=== PATIENT | female | born 2000 | race Caucasian/White ===

== ENCOUNTER → 2020-07-09 10:32 | Outpatient (CLI) | payer OTHER, SELFPAY ==
[2020-07-09 12:10] LABS: Hematocrit 33.1 % (36-46); Hemoglobin 11.3 g/dL (12.0-16.0)
[2020-07-09 12:27] LABS: GTT (PREG) 1 Hour PP 50gm Dose 92 mg/dL (76-139)
== END ==
PROVIDERS: PCP Obstetrics & Gynecology; Referring Provider Obstetrics & Gynecology; Visit Provider Obstetrics & Gynecology
DX: Z34.82 Encounter for supervision of other normal pregnancy, second trimester (principal); Z3A.28 28 weeks gestation of pregnancy
CPT/HCPCS: 36415; 82950; 85014; 85018

== ENCOUNTER → 2020-07-23 13:36 | Outpatient (CLI) | payer OTHER, SELFPAY ==
[2020-07-24 08:03] LABS: Strep Grp B PCR NEG for Grp B Strep
== END ==
PROVIDERS: PCP Obstetrics & Gynecology; Visit Provider Obstetrics & Gynecology
DX: Z34.83 Encounter for supervision of other normal pregnancy, third trimester (principal); Z3A.36 36 weeks gestation of pregnancy
CPT/HCPCS: 87653

== ENCOUNTER 2020-08-17 13:03 | Outpatient (CLI) | payer OTHER, SELFPAY ==
--- NOTE | 2020-08-17 13:06 | DI.US.S_ITS ---
PROCEDURE: US OB LIMITED INDICATIONS: AMNIOTIC FLUID INDEX OUTSIDE/PRIOR DATING DATA: Last menstrual period (LMP): Not available. LMP-based estimated date of delivery (SATYA): Not available . First dating scan (date and location): Not available . Estimated date of delivery (SATYA) from first dating scan: Not available . TECHNIQUE: Real-time scanning was performed of the fetus, with image documentation. Endovaginal scanning: Not needed COMPARISON: [facility], US, US OB >= 14 WEEKS FETUS, 07/16/2020, 13:40. [facility], US, US OB >= 14 WEEKS FETUS, 05/31/2020, 10:31. FINDINGS: A single living intrauterine gestation is present. Presentation: Vertex. Placenta: Placental position is superior right, without previa. Amniotic fluid index: 4.5 cm, normal range is 5-24 cm. heart rate: 145 beats per minute. IMPRESSION: Abnormally low amniotic fluid index of 4.5 cm. It is noted that Ob ultrasound studies performed elsewhere do not document oligohydramnios. heart rate is 145 beats per minute. Dictated by: Leland Hayden M.D. on 08/17/2020 at 15:10 Approved by: Leland Hayden M.D. on 08/17/2020 at 15:12
--- NOTE | 2020-08-17 20:29 | PM.OBTRLD ---
Visit Information Visit Information Date of evaluation: 08/17/20 Primary OB Provider: Radha James On-call OB Provider: Indigo Solomon Reason for Evaluation: Yes non-stress test Comments/Additional reasons for admission: 19yo at 40w0d here for NST due to dates. Pt is feeling baby move regularly. No LOF, vaginal bleeding, contractions. [facility] Medical History (Updated 08/17/20 @ 20:32 by nIdigo Solomon MD) Generalized headaches Intussusception of intestine (~2009) Family History (Updated 05/30/20 @ 15:32 by Rosa Krishna RN) Mother Anxiety Father No problems noted. Grandmother No problems noted. Grandfather Congestive heart failure Grandfather Diabetes mellitus Cancer Grandmother Cancer Social History marital status: unmarried,living together number of children: 0 household members: significant other lives independently: Yes caregiver/support person: No housing: house pets and animals: No education level: high school occupational status: unemployed current occupational exposures/hazards: No special milly needs: No Smoking Status: Never smoker second hand exposure: No alcohol intake: never substance use type: does not use Objective Imaging OB U/S: Radiologist's impression: Abnormally low amniotic fluid index of 4.5 cm. It is noted that Ob ultrasound studies performed elsewhere do not document oligohydramnios. heart rate is 145 beats per minute. Evaluation Evaluation Baseline heart rate: 120 Variability: Moderate (11-25) monitor accelerations: Present monitor decelerations: Absent Category of Tracing: Reactive Diagnosis, Plan/Disposition Final Diagnosis (1) Term : Status: Acute (2) Oligohydramnios: Status: Acute Plan/Disposition Plan: 19yo at 40w0d here for NST due to dates. NST reactive and reassuring, however ANASTACIO does show oligohydramnios at 4.5. Discussed with Dr Gallardo. Will plan on IOL with cervidil the evening of 08/19. Pt to return for repeat NST tomorrow. Pt to do regular kick counts at home in the interim. OB Disposition: home
== END 2020-08-17 14:12 | disposition home or self-care (01) ==
LOC: OB 08-20 07:42
PROVIDERS: Referring Provider Obstetrics & Gynecology; Visit Provider Obstetrics & Gynecology
DX: O48.0 Post-term pregnancy (principal); O41.03X0 Oligohydramnios, third trimester, not applicable or unspecified; Z3A.40 40 weeks gestation of pregnancy
CPT/HCPCS: 59025; 76815; G0378; G0379

== ENCOUNTER 2020-08-18 12:50 | Outpatient (CLI) | payer OTHER, SELFPAY ==
--- NOTE | 2020-08-18 21:27 | PM.OBTRLD ---
Visit Information Visit Information Date of evaluation: 08/18/20 Primary OB Provider: Radha James On-call OB Provider: Indigo Solomon Reason for Evaluation: Yes non-stress test non-stress test reason: other (oligohydramnios) Comments/Additional reasons for admission: 19yo at 40w1d here for NST due to oligo. Feeling baby move regularly. No vaginal bleeding, LOF. Feeling contractions intermittently. [facility] Medical History (Updated 08/17/20 @ 20:32 by Indigo Solomon MD) Generalized headaches Intussusception of intestine (~2009) Family History (Updated 05/30/20 @ 15:32 by Rosa Krishna RN) Mother Anxiety Father No problems noted. Grandmother No problems noted. Grandfather Congestive heart failure Grandfather Diabetes mellitus Cancer Grandmother Cancer Social History marital status: unmarried,living together number of children: 0 household members: significant other lives independently: Yes caregiver/support person: No housing: house pets and animals: No education level: high school occupational status: unemployed current occupational exposures/hazards: No special milly needs: No Smoking Status: Never smoker second hand exposure: No alcohol intake: never substance use type: does not use Evaluation Evaluation Baseline heart rate: 120 Variability: Moderate (11-25) monitor accelerations: Present monitor decelerations: Absent Category of Tracing: Reactive Comments: Intermittent contractions not felt by patient Diagnosis, Plan/Disposition Final Diagnosis (1) Oligohydramnios: Status: Acute (2) Term : Status: Acute Plan/Disposition Plan: 19yo at 40w1d here for NST due to oligo. Reactive NST. Plan for IOL tomorrow evening. OB Disposition: home
== END 2020-08-18 13:30 | disposition home or self-care (01) ==
LOC: LABOR 13:01 → OB 08-20 07:42
PROVIDERS: Referring Provider Obstetrics & Gynecology; Visit Provider Obstetrics & Gynecology
DX: O48.0 Post-term pregnancy (principal); O41.03X0 Oligohydramnios, third trimester, not applicable or unspecified; Z3A.40 40 weeks gestation of pregnancy
CPT/HCPCS: 59025; G0378; G0379

== ENCOUNTER 2020-08-19 17:59 | Inpatient (IN) | payer OTHER, SELFPAY ==
[2020-08-19 18:46] VITALS: BP 116/69
[2020-08-19 18:48] LABS: Add Manual Diff / Slide Review NO; Basophils Absolute Auto 100 /uL (0-100); Basophils Percent Auto 0.5 % (0-2); Eosinophils Absolute Auto 100 /uL (0-450); Eosinophils Percent Auto 0.6 % (2-4); Hematocrit 33.2 % (36-46); Lymphocytes Absolute Auto 1700 /uL (1100-4500); Lymphocytes Percent Auto 12.7 % (25-40); Mean Corpuscular HGB Conc 33.2 % (30-36); Mean Corpuscular Hemoglobin 28.2 PG (26-34); Mean Corpuscular Volume 84.8 fL (80-100); Monocytes Absolute Auto 900 /uL (0-900); Monocytes Percent Auto 6.7 % (3-14); Neutrophils Absolute Auto 10900 /uL (1500-7000); Neutrophils Percent Auto 79.5 % (50-75); Platelet Count 250 X10^3/uL (150-400); Red Blood Cell Count 3.92 X10^6/uL (4.0-5.2); Red Cell Distribution Width 13.3 % (11.6-14.8); White Blood Cell Count 13.7 X10^3/uL (4.5-11.0)
[2020-08-19 19:03] LABS: COVID19 -Nasal RAPID Negative (Negative)
[2020-08-19] MEDS: DINOPROSTONE VAG (CERVIDIL) 10 MG VAG (19:32)
[2020-08-19] MEDS: ZOLPIDEM 5 MG TABLET 10 MG PO (23:29)
[2020-08-20] MEDS: MORPHINE 4 MG/ML INJ IV ×2 (01:26→04:28)
--- NOTE | 2020-08-20 05:21 | PM.AN.REGBLK ---
Regional Block Pre-procedure Procedure: Continuous Lumbar Epidural for L&D Attending OB provider: Indigo Solomon PMH/ROS narrative: term labor, no complications. Hx: No personal or family history of anesthesia problems. (vague history of mother arresting in OR) ASA Class: II Labs: Hct 33.2 % (36-46) L 08/19/20 18:35 Plt Count 250 X10^3/uL (150-400) 08/19/20 18:35 Medications: Current Medications Generic Name Dose Route Start Last Admin Trade Name Freq PRN Reason Stop Dose Admin Calcium Carbonate 500 mg 08/19/20 18:18 Calcium Carbonate 500 Mg Tab PO Q2HR PRN Dyspepsia Fentanyl 50 mcg 08/19/20 18:18 Fentanyl 100 Mcg/2 Ml Inj IV Q1H PRN Pain, Moderate (4-6) Lactated Ringer's 1,000 mls @ 125 mls/hr 08/19/20 18:30 Lactated Ringers IV CONT ERMELINDA Lactated Ringer's 1,000 mls @ 100 mls/hr 08/19/20 18:30 Lactated Ringers IV CONT ERMELINDA Oxytocin/Lactated Ringer's 30 unit in 500 mls @ 3 mls/hr 08/19/20 18:30 Oxytocin Premix IV TITRATE [facility] Protocol 3 MILLIUNIT/MIN Morphine Sulfate 4 mg 08/20/20 01:18 08/20/20 04:28 Morphine 4 Mg/Ml Inj IV 4 mg Q3HR PRN Administration Pain, Moderate (4-6) Ondansetron HCl 4 mg 08/19/20 18:18 Ondansetron 4 Mg/2 Ml Inj IV Q4HR PRN Nausea And Vomiting Zolpidem Tartrate 10 mg 08/19/20 20:32 08/19/20 23:29 Zolpidem 5 Mg Tablet PO 10 mg BEDTIME PRN Administration Sleep Allergies: Allergies Allergy/AdvReac Type Severity Reaction Status Date / Time No Known Drug Allergies Allergy Verified 07/16/20 13:32 peanut Allergy Intermediate Itchy, Uncoded 07/16/20 13:32 hives around mouth Procedure Insertion date: 08/20/20 Insertion time: 05:05 Interspace: L2-3 Patient position: sitting Needle: 18 gauge Sunbeamtead (CSE: 27g Pencan through Hustead, clear CSF, 0.75mL 0.25% bupiv) Loss of resistance with: saline HUMBERTO at (cm): 6 Catheter placed at SKIN (cm): 11 Catheter in SPACE (cm): 5 Insertion: No CSF, No Blood, No Paresthesia with insertion, No Paresthesia with injection and No Test dose reaction Initial Medications TEST DOSE time: 05:07 TEST DOSE: 1.5% lidocaine with epinephrine 1:200k (mL): 3 BOLUS DOSE time: 05:17 BOLUS DOSE (mL): 3 BOLUS DOSE med: other (infusate) Infusion INFUSION: 0.125% bupivacaine and with fentanyl 2 mcg/mL Initial rate (mL/hr): 6 Subsequent interventions: Post-procedure Anesthesia time START: 04:54 Anesthesia time END: 08:21 Post-procedure Anesthesia Assessment: Yes CV function: HR/BP stable, Yes Resp function: RR/sat/airway adequate, Yes Post-op hydration adequate, Yes Pain control adequate, Yes Mental status appropriate and No Anesthesia complications
--- NOTE | 2020-08-20 08:38 | P.PCNOB_ITS ---
Events: Oligohydramnios Labor & Delivery Delivery date: 08/20/20 Intrapartal events: Acceleration and Deceleration Cervical ripening method: per Cervidil protocol Induction method: none Delivery augmentation: rupture of membranes Delivery monitor: external FHT and external uterine Route of delivery: L&D Laceration Description: Perineal - 2nd Degree Delivery repair: vicryl Estimated blood loss (mL): 100 Anesthesia type: Epidural Narrative: This patient is a 19-year-old now para 1 status post uncomplicated delivery after induction of labor for oligohydramnios at 40 weeks 3 days. The patient was induced with Cervidil, progressed on her own, and after short 2nd stage was delivered of a healthy baby boy weighing 3295g, Apgars 8 and 9. One loose nuchal cord was reduced at the perineum, and the shoulders delivered with ease. 45 seconds of delayed cord clamping was undertaken, with the on maternal abdomen. The placenta delivered intact shortly thereafter, with a three-vessel cord. A small second-degree perineal laceration was repaired with 3-0 Vicryl in the usual fashion. The patient received 30 milliunits of Pitocin per the usual fashion as a preventative measure, and EBL was 100 cc. There were no other intrapartum or immediate complications. [place] Baby Efraín: Infant gender: Male Presentation: vertex position: Right Occiput Anterior Placenta delivery description: Spontaneous cord vessel description: 3 Vessels score (1 min): 8 score (5 min): 9 Plan for aftercare: Routine care
--- NOTE | 2020-08-20 08:38 | P.HPOB_ITS ---
OB HPI Date/Time Date of admission: 08/19/20 Date Patient Seen: 08/20/20 Time Patient Seen: 08:00 History of Present Condition Chief complaint: Labor & Delivery : 3 Para: 0 Estimated Date of Delivery: 08/17/20 Estimated Gestational Age (weeks): 40 Narrative: Shawn Villeda is a 19 year old 020 at 40 weeks 3 days admitted for induction of labor for oligohydramnios and postdates testing. Patient received a Cervidil overnight, and early this morning received an epidural at 4 cm. Approximately 3 hours later, she was found to be fully dilated, after a 20 minutes 2nd stage, was delivered of a healthy baby boy as detailed in the delivery note. The patient has had an uncomplicated , though with late transfer of care from the [facility]. 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 Indications Indication for induction OB: post dates (Oligohydramnios, ANASTACIO 4.5) History of Present care: good care Dating criteria: based on 2nd trimester US only Ultrasounds: normal mid trimester US Obstetrical complications: none Medical complications: none Preadmission Labs Blood type: A (+) positive -: Antibody screen: negative, GBS status: negative, HBsAG: negative, HIV: negative and RPR/VDLR: negative -: Chlamydia screen: not detected and Gonorrhea screen: not detected -: Rubella: immune and Varicella: immune PAP: Normal Quad screen: Normal Urine: Enteric arcus, treated prior to transfer 1 hr GTT: 92 Prior (ies) History: G1: 11/19/18, SAB, 8 wk, CA G2: 02/19/19, SAB, 8 wk, CA Evaluation Evaluation Baseline heart rate: 130 Variability: Minimal (3-5) monitor accelerations: Absent monitor decelerations: Absent Contraction Frequency (minutes): 3 Category of Tracing: Non-reactive Cervical dilation (cm): 10 Cervical effacement (%): 100 station: +3 Laboratory results: Laboratory Tests 08/19/20 08/19/20 08/19/20 18:20 18:35 18:35 WBC 13.7 H RBC 3.92 L Hgb 11.0 L Hct 33.2 L MCV 84.8 MCH 28.2 MCHC 33.2 RDW 13.3 Plt Count 250 Neut % (Auto) 79.5 H Lymph % (Auto) 12.7 L Weston % (Auto) 6.7 Eos % (Auto) 0.6 L Baso % (Auto) 0.5 Neut # (Auto) 69482 H Lymph # (Auto) 1700 [place] # (Auto) 900 Eos # (Auto) 100 Baso # (Auto) 100 COVID-19 PCR Negative Blood Type A Positive Antibody Screen Negative PFSH Medical History Generalized headaches Intussusception of intestine (~2009) Family History Mother Anxiety Father No problems noted. Grandmother No problems noted. Grandfather Congestive heart failure Grandfather Diabetes mellitus Cancer Grandmother Cancer Social History marital status: unmarried,living together number of children: 0 household members: significant other lives independently: Yes caregiver/support person: No housing: house pets and animals: No education level: high school occupational status: unemployed current occupational exposures/hazards: No special milly needs: No Smoking Status: Never smoker second hand exposure: No alcohol intake: never substance use type: does not use Meds Home Medications and Allergies Home Medications Medication Instructions Recorded Confirmed Type prenat.vits,janak,gao-xflt-wvuel 1 tab PO DAILY 05/30/20 08/19/20 History Double Electric breast Pump and #1 each 06/26/20 08/19/20 Rx Supplies Allergies Allergy/AdvReac Type Severity Reaction Status Date / Time peanut Allergy Intermediate ITCHY, Verified 08/20/20 09:01 HIVES AROUND MOUTH Review of Systems Constitutional Constitutional: Reports system reviewed and no additional complaints, except as documented Cardiovascular Cardiovascular: Reports system reviewed and no additional complaints, except as documented Respiratory Respiratory: Reports system reviewed and no additional complaints, except as documented Gastrointestinal Gastrointestinal: Reports system reviewed and no additional complaints, except as documented Exam Vital Signs (past 8 hours): 110/62 Const General: cooperative, healthy appearing and comfortable GI Palpation: soft External Female Exam: normal external appearance Presentation: vertex Amniotic Fluid: clear (A ROM at 3+ station) Objective Labs Result Diagrams: 08/19/20 18:35 Labs: Laboratory Results - last 24 hr 08/19/20 08/19/20 08/19/20 18:20 18:35 18:35 WBC 13.7 H RBC 3.92 L Hgb 11.0 L Hct 33.2 L MCV 84.8 MCH 28.2 MCHC 33.2 RDW 13.3 Plt Count 250 Neut % (Auto) 79.5 H Lymph % (Auto) 12.7 L Weston % (Auto) 6.7 Eos % (Auto) 0.6 L Baso % (Auto) 0.5 Neut # (Auto) 64436 H Lymph # (Auto) 1700 [place] # (Auto) 900 Eos # (Auto) 100 Baso # (Auto) 100 COVID-19 PCR Negative Blood Type A Positive Antibody Screen Negative Assessment and Plan Assessment and Plan Assessment and Plan narrative: This patient was admitted for induction of labor for oligohydramnios in the setting of postdates, and underwent a successful induction of labor, progressing to fully dilated. She underwent an uncomplicated vaginal delivery as described above after an uncomplicated .
[2020-08-20] MEDS: IBUPROFEN 600 MG TABLET PO (21:29)
[2020-08-21] MEDS: IBUPROFEN 600 MG TABLET PO (03:24)
--- NOTE | 2020-08-21 07:14 | P.DS_ITS ---
Discharge Providers Provider Date of admission: 08/19/20 17:59 Discharge Date: 08/21/20 Consults: 08/21/20 08:38 Consult to Credit Reporting Clerk Routine Comment: Discharge provider: Radha James MD Summary Hospital Course Date Patient Seen: 08/21/20 Time Patient Seen: 07:48 Procedures: Spontaneous vaginal delivery Hospital Course: This patient was admitted for induction of labor for oligohydramnios in the postdates period. She underwent cervical ripening with cervidil, and progressed into spontaneous labor. She progressed to fully dilated overnight, and underwent AROM at fully dilated. After a 20 minute 2nd stage, she underwent an uncomplicated delivery of a healthy baby boy, weight 3295g, apgars 8+9. A small 2nd degree perineal laceration was repaired in the usual fashion, and there were no intrapartum or immediate complications. Her recovery was uncomplicated, and she was discharged on PPD#1 with routine precautions and follow up. Peripartum Data Infant Delivery Method: Natural Vaginal Laceration Description: Perineal - 2nd Degree Procedures: vaginal delivery complications: none Efraín: Gender: Male Disposition of : home Discharge Diagnosis (1) Vaginal delivery: Status: Acute Status at Discharge Cognitive/behavioral status at discharge: oriented Functional status at discharge: independent ambulation Overall status at discharge: patient is progressing back to baseline Time Spent with Patient Time attestation: Total time spent providing and/or coordinating discharge services: Objective Labs Result Diagrams: 08/19/20 18:35 Exam Vital Signs (past 8 hours): 114/69, HR 76, T 98 Narrative Exam Narrative: Patient resting on when the seat with , well-appearing, mobile Resp Effort & Inspection: normal respiratory effort Auscultation: clear to auscultation bilaterally Cardio Rate: regular rate Rhythm: regular rhythm GI Palpation: soft and No tender Other: Fundus firm, well below U Skin General: no rashes or lesions noted Extrem General: normal to inspection Discharge Plan Discharge Plan Patient Disposition: Home Discharge orders & Medications Prescriptions: Continued (DME) Double Electric breast Pump and Supplies See Rx Instructions .ROUTE .MEDSUPPLY Qty: 1 RF: 0 prenat.vits,janak,[id number]-[id number] Tablet 1 tab PO DAILY RF: 0 Follow up/Referrals: Radha James MD [Physician] - 6 Weeks ( check) Diet/Activity/Treatments Diet: Regular Activity: Nothing in the vagina for 6 weeks. Avoid heavy lifting for 6 weeks. If you have increasing bleeding, pain, fevers, chills, headaches, visual changes, or any other symptoms or concerns, call or come to the emergency room. Skin/Wound/Dressing Care Report to your healthcare provider any signs of infection, such as:: chills, fever, night sweats, increased pain, unusual drainage and unusual redness Visit Report/Discharge Packet Instructions: DI for Labor and Delivery, Vaginal
[2020-08-21] MEDS: DERMOPLAST SPRAY 20% 60 ML 1 SPRAY TOP (08:36)
[2020-08-21] MEDS: PRENATAL VIT,CALC/IRON/FOLIC 1 TABLET 1 TAB PO (08:36)
[2020-08-21 09:10] VITALS: BP 124/76; PULSE 56; RESP 16; TEMP 36.9
== END 2020-08-21 12:15 | disposition home or self-care (01) | DRG 807 ==
PROVIDERS: Family Medicine; Admitting Provider Obstetrics & Gynecology; Referring Provider Obstetrics & Gynecology; Visit Provider Obstetrics & Gynecology
DX: O41.03X0 Oligohydramnios, third trimester, not applicable or unspecified (principal); Z37.0 Single live birth; O48.0 Post-term pregnancy; Z3A.40 40 weeks gestation of pregnancy; O70.1 Second degree perineal laceration during delivery; Z11.59 Encounter for screening for other viral diseases
CPT/HCPCS: 01967; 36415; 59050; 59410; 85025; 86850; 86900; 86901; 87635; G0379; J2270

== ENCOUNTER → 2020-10-10 17:10 | Outpatient (CLI) | payer OTHER, MEDICAID, SELFPAY | PROVIDERS: Visit Provider Nurse Practitioner | DX: N34.3 Urethral syndrome, unspecified (principal) | CPT/HCPCS: 87086 ==